=== PATIENT | female | born 1995 | race Caucasian/White ===

== ENCOUNTER 2016-11-21 18:14 | Emergency (ER) | payer BC, OTHER ==
[2016-11-21 18:52] VITALS: TEMP 98.3; O2SAT 99
--- NOTE | 2016-11-21 21:08 | ED.PDOC ---
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 No significant increase in discharge and no bleeding. No diarrhea. No vomiting but she has had some very mild nausea. No syncope or near syncope. The patient has had a normal before and has also had a miscarriage before. She does have irregular periods and her last normal menstrual period was in July. It is not unusual for her to go to 4 months without a period. Timing/Duration: 24 hours Severity: mild Improving Factors: nothing Worsening Factors: nothing Associated Symptoms: denies symptoms Allergies/Adverse Reactions: Allergies Penicillins Allergy (Verified 11/21/16 18:52) Home Medications: Ambulatory Orders NK [NK] 05/16/15 Review of Systems - Review of Systems Constitutional: States: malaise EENTM: States: no symptoms reported Respiratory: States: no symptoms reported Cardiology: States: no symptoms reported Gastrointestinal/Abdominal: States: nausea Genitourinary: States: no symptoms reported Musculoskeletal: States: no symptoms reported Skin: States: no symptoms reported Neurological: States: no symptoms reported All other Systems: No Change from Baseline Past Medical History (General) - Patient Medical History Hx Stroke: No Hx Congestive Heart Failure: No Hx Diabetes: No Hx Renal Disease: No Surgical History: no surgical history - Vaccination History Hx Tetanus, Diphtheria Vaccination: No Hx Influenza Vaccination: No Hx Pneumococcal Vaccination: No - Social History Hx Tobacco Use: Yes Cigarettes Packs Per Day: 1 Hx Alcohol Use: No Hx Substance Use: No - Pt denies use of drugs Hx Depression: No - Activities of Daily Living Hospice Agency (if applicable):: None - Female History Patient is a Female of Child Bearing Age (10 -59 yrs old): No Hx Last Menstrual Period: 08/10/12 Patient : Yes Expected Date of Delivery:: 05/23/13 Family Medical History - Family History Mother Family History: No Known Living Status: Still Living Physical Exam - Physical Exam General Appearance: Alert, Comfortable, No apparent distress Eye Exam: bilateral normal Ears, Nose, Throat: normal ENT inspection, normal pharynx Neck: full range of motion, supple, normal inspection Respiratory: chest non-tender, lungs clear, normal breath sounds, no respiratory distress, no accessory muscle use Cardiovascular/Chest: normal peripheral pulses, regular rate, rhythm, no edema Peripheral Pulses: radial,right: 2+, radial,left: 2+, dorsalis pedis,right: 2+, dorsalis pedis,left: 2+ Gastrointestinal/Abdominal: non tender, soft Rectal Exam: deferred, other - pelvic exam shows a closed cervix. No significant abnormal discharge. No cervical motion tenderness. Fundus is palpable and well below the umbilicus. Back Exam: normal inspection, no CVA tenderness, no vertebral tenderness Extremity: normal range of motion, non-tender, normal inspection, no pedal edema , normal capillary refill Neurologic: alert, normal mood/affect, oriented x 3 Skin Exam: normal color Comments: Vital Signs - 24 hr 11/21/16 11/21/16 18:44 20:30 Temperature 98.3 F Pulse Rate [ 108 H 75 pulse ox] Respiratory 20 16 Rate Blood Pressure 154/89 118/64 [left arm] O2 Sat by Pulse 99 Oximetry Progress - Progress Progress: 11/21/16 21:09 the patient is a 21-year-old female presenting to the emergency room secondary to some mild lower abdominal cramping with a positive urine test from 2 days ago. Serum beta hCG is 5000. Transabdominal pelvic ultrasound performed by me with a very low resolution ER ultrasound shows a thickened endometrium and possibly an intrauterine gestational sac. I see no definitive pole at this time and of course no cardiac motion. Pelvic exam shows a cervical os that is closed. No bleeding. The findings could be consistent with a gestational age of approximately 5 weeks or a that is further along and has begun the process of miscarrying. The patient is to follow-up with an implementation engineer or primary care of her choice in 3 days to repeat the serum hCG. a high-resolution ultrasound would certainly be helpful. Tylenol can be used for discomfort. She needs to keep herself well-hydrated. Return to the emergency room for any acute worsening. 11/21/16 21:13 - Results/Orders Results/Orders: Laboratory Results - last 24 hr 11/21/16 11/21/16 18:50 19:07 WBC 7.3 RBC 4.63 Hgb 14.0 Hct 42.2 MCV 91.1 MCH 30.3 MCHC 33.3 RDW 13.2 Plt Count 216 MPV 8.8 Absolute Neuts (auto) 5.00 Absolute Lymphs (auto) 1.50 Absolute Monos (auto) 0.70 Absolute Eos (auto) 0.00 Absolute Basos (auto) 0.10 Neutrophils % 68.2 Lymphocytes % 20.5 Monocytes % 9.7 H Eosinophils % 0.6 L Basophils % 1.0 Sodium 139 Potassium 3.3 L Chloride 104 Carbon Dioxide 25 Anion Gap 13.3 BUN 15 Creatinine 0.79 BUN/Creatinine Ratio 19.0 Random Glucose 133 H Serum Osmolality 280.3 Calcium 9.3 Total Bilirubin 0.8 AST 22 ALT 28 Alkaline Phosphatase 46 Serum Total Protein 7.6 Albumin 4.6 Globulin 3.0 Albumin/Globulin Ratio 1.5 Amylase 50 Lipase 25 TSH 0.80 Beta HCG, Quant 5067.0 H Urine Color Yellow Urine Appearance Clear Urine pH 6.0 Ur Specific [place] 1.010 Urine Protein Negative Urine Glucose (UA) Negative Urine Ketones Negative Urine Blood Negative Urine Nitrite Negative Urine Bilirubin Negative Urine Urobilinogen 0.2 Ur Leukocyte Esterase Negative Urine RBC 0-1 Urine WBC 0-1 Ur Epithelial Cells 0-1 Urine Bacteria Rare Departure - Departure Clinical Impression: Threatened in early Disposition: Discharge to Home or Self Care Condition: Fair Departure Forms: ED Discharge - Pt. Copy, Patient Portal Self Enrollment Instructions: DI for Threatened Diet: regular diet Activity: increase activity as tolerated, other - Pelvic rest Home Medications: Ambulatory Orders NK [NK] 05/16/15 Additional Instructions: the patient is a 21-year-old female presenting to the emergency room secondary to some mild lower abdominal cramping with a positive urine test from 2 days ago. Serum beta hCG is 5000. Transabdominal pelvic ultrasound performed by me with a very low resolution ER ultrasound shows a thickened endometrium and possibly an intrauterine gestational sac. I see no definitive pole at this time and of course no cardiac motion. Pelvic exam shows a cervical os that is closed. No bleeding. The findings could be consistent with a gestational age of approximately 5 weeks or a that is further along and has begun the process of miscarrying. The patient is to follow-up with an implementation engineer or primary care of her choice in 3 days to repeat the serum hCG. a high-resolution ultrasound would certainly be helpful. Tylenol can be used for discomfort. She needs to keep herself well-hydrated. Return to the emergency room for any acute worsening.
[2016-11-21 21:29] VITALS: BP 127/89
== END 2016-11-21 21:29 | disposition home or self-care (01) ==
LOC: ER 18:14
DX: O20.0 Threatened abortion (principal); Z3A.00 Weeks of gestation of pregnancy not specified; O99.331 Smoking (tobacco) complicating pregnancy, first trimester; F17.210 Nicotine dependence, cigarettes, uncomplicated; Z88.0 Allergy status to penicillin

== ENCOUNTER 2017-07-15 00:07 | Emergency (ER) | payer OTHER ==
[2017-07-15] MEDS ORDERED: SODIUM CHLORIDE 0.9% 1000ML 1,000 ML ONE (00:16)
[2017-07-15] MEDS ORDERED: LACTATED RINGERS 1,000 ML ONE (00:18)
[2017-07-15] MEDS ORDERED: LIDOCAINE 1% 50 ML VIAL INJ ONE (00:20)
[2017-07-15] MEDS ORDERED: OXYTOCIN INJ 10 UNITS/ML VIAL ONE (00:22)
[2017-07-15] MEDS ORDERED: fentaNYL CITRATE INJ 50 MCG/ML AMP ONE ×2 (00:26→01:48)
[2017-07-15] MEDS ORDERED: POVIDONE IODINE 10 % 15 ML UD TOP ONE (00:33)
[2017-07-15] MEDS ORDERED: ceFAZolin SODIUM 1 GM VIAL ONE (00:45)
[2017-07-15] MEDS ORDERED: SODIUM CHLORIDE 0.9% 50ML 50 ML ONE (00:45)
[2017-07-15] MEDS ORDERED: LACTATED RINGERS 1,000 ML IVS PRN (00:49)
[2017-07-15] MEDS ORDERED: ERYTHROMYCIN OPHTH OINT 1 APPLIC ONE (01:01)
--- NOTE | 2017-07-15 02:24 | ED.PDOC ---
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 Escobar-OB at [place] and was about to see him tomorrow.On her arrival at ER she was checked and vaginal exam her cervix 6 cm.dilatation,90 % effaced sta-0 and according to nurse she could not be transferred since she is in active labor Timing/Duration: 4-6 hours, constant Severity: moderate Improving Factors: nothing Worsening Factors: other - uterine contractions Associated Symptoms: other - see hpi Allergies/Adverse Reactions: Allergies Penicillins Allergy (Verified 07/15/17 01:37) Home Medications: Ambulatory Orders Vit W/ Ferrous Fumara [] 1 tablet PO DAILY 07/15/17 Review of Systems - Review of Systems Constitutional: States: no symptoms reported EENTM: States: no symptoms reported Respiratory: States: no symptoms reported Genitourinary: States: see HPI Musculoskeletal: States: no symptoms reported Past Medical History (General) - Patient Medical History Hx Seizures: No Hx Stroke: No Hx Asthma: No Hx Congestive Heart Failure: No Hx Diabetes: No Hx Renal Disease: No Surgical History: other - Vaccination History Hx Tetanus, Diphtheria Vaccination: No Hx Influenza Vaccination: No Hx Pneumococcal Vaccination: No - Social History Hx Tobacco Use: Yes Hx Alcohol Use: No Hx Substance Use: No - Pt denies use of drugs Hx Depression: No - Female History Patient is a Female of Child Bearing Age (10 -59 yrs old): Yes Hx Last Menstrual Period: 09/14/16 Patient : Yes - 38.1 wks Expected Date of Delivery:: 07/28/17 - Triage Comment ED Triage Comment: Pt is UC q3-4 min upon arrival. SVE initial 5-6cm Family Medical History - Family History Mother Family History: No Known Living Status: Still Living Physical Exam - Physical Exam General Appearance: Alert, Anxious, No apparent distress Eye Exam: bilateral normal Ears, Nose, Throat: hearing grossly normal, normal ENT inspection Neck: non-tender, supple Respiratory: lungs clear, normal breath sounds, no respiratory distress Cardiovascular/Chest: normal peripheral pulses, regular rate, rhythm, no murmur Gastrointestinal/Abdominal: other - gravid uterus heart tone-140 fundic height-27 Vaginal Exam cx-6cm dilated,90% eff,sta-0,cephalic presentation Extremity: no pedal edema, no calf tenderness Skin Exam: normal color, warm/dry Lymphatic: no adenopathy Progress - Progress Progress: 07/15/17 02:27 Vital Signs - 8 hr 07/15/17 07/15/17 00:10 01:28 Temperature 98 F Pulse Rate [ 97 H 97 H left] Respiratory 20 18 Rate Blood Pressure 144/87 [left] O2 Sat by Pulse 95 Oximetry - Results/Orders Results/Orders: Laboratory Tests 07/15/17 07/15/17 07/15/17 00:25 00:25 01:05 WBC 10.1 RBC 4.28 Hgb 12.6 Hct 37.6 MCV 87.9 MCH 29.4 MCHC 33.5 RDW 13.6 Plt Count 212 MPV 10.2 Absolute Neuts (auto) 7.50 H Absolute Lymphs (auto) 1.70 Absolute Monos (auto) 0.70 Absolute Eos (auto) 0.10 Absolute Basos (auto) 0.10 Neutrophils % 74.4 Lymphocytes % 17.1 L Monocytes % 6.9 Eosinophils % 1.1 Basophils % 0.5 POC Glucose 84 HIV 1&2 Antibody Rapid Negative Procedures - Additional Procedures Progress: Vaginal Delivery procedure-Ms. Kilpatrick 21 y/o female 38 wKS EGA admitted via ER in active labor with frequent painful uterine contractions cx-6 cm dilated,90% effaced,sta-0 vertex presentation and continued to have uterine contraction was prepped and draped in sterile manner then after 1hour and 40 minutes of active labor female baby delivered -actively crying score- 8/9 placenta delivered spontaneously after 2 minutes -complete no major laceration noted.Babys weight 5lbs/15 0z. Departure - Departure Clinical Impression: with 38 completed weeks gestation, Normal vaginal delivery Time of Disposition: 03:19 Disposition: Transfer to Hospital Condition: Fair Departure Forms: Patient Portal Self Enrollment Home Medications: Ambulatory Orders Vit W/ Ferrous Fumara [] 1 tablet PO DAILY 07/15/17 Transfer to Outside Facility - Transfer Information Accepting Provider:: Dr. Duke Accepting Facility: [facility]
[2017-07-15 07:45] VITALS: O2SAT 97
[2017-07-15 08:14] VITALS: BP 141/91; TEMP 98
== END 2017-07-15 04:10 | disposition short-term general hospital (02) ==
LOC: ER 00:07
DX: O80 Encounter for full-term uncomplicated delivery (principal); Z3A.38 38 weeks gestation of pregnancy; Z37.0 Single live birth; Z87.891 Personal history of nicotine dependence
CPT/HCPCS: 36415; 36416; 80307; 81001; 82948; 85025; 86592; 86703; 86706; 86850; 86900; 86901; 99464; A4216; J0690; J2590; J3010; J7030; J7120

== ENCOUNTER 2020-07-02 13:21 | Emergency (ER) | payer MEDICAID, OTHER ==
[2020-07-02] MEDS ORDERED: DEXAMETHASONE INJ 10 MG/ML VIAL IM ONE (13:41)
[2020-07-02] MEDS ORDERED: FAMOTIDINE 20 MG TAB PO ONE (13:45)
--- NOTE | 2020-07-02 13:47 | ED.PDOC ---
History of Present Illness - General Time Seen by Provider: 07/02/20 13:36 - History of Present Illness Initial Comments: 24 yo F no significant PMH presents to ED c/o rash around neck intermittently x 2 months. Denies new perfume food soap deoderant but pre-existing rash is easily irritated itchy and worsened by 'fake silver jewelery' Denies fever cough sob recent travel or contact with covid19. Denies fever chills nausea vomiting diarrhea chest pain sob diaphoresis. No change in diet rest bowel or bladder admits drinking and smoking has no PMD for follow up no other c/o today. PPE worn-N95 surgical mask with attyached face shield over N95 gloves and face shield over that. Allergies/Adverse Reactions: Allergies Penicillins Allergy (Verified 07/15/17 01:37) Home Medications: Ambulatory Orders Vit W/ Ferrous Fumara [] 1 tablet PO DAILY 07/15/17 DiphenhydrAMINE HCL [Benadryl] 50 mg PO BEDTIME #5 cap 07/02/20 Famotidine [Pepcid] 20 mg PO BID #14 tab 07/02/20 Prednisone 40 mg PO DAILY 5 Days #10 tab 07/02/20 Review of Systems - Review of Systems Constitutional: States: see HPI EENTM: States: see HPI Respiratory: States: see HPI Cardiology: States: see HPI Gastrointestinal/Abdominal: States: see HPI Genitourinary: States: see HPI Musculoskeletal: States: see HPI Skin: States: see HPI Neurological: States: see HPI Endocrine: States: see HPI All other Systems: Reviewed and Negative Past Medical History (General) - Patient Medical History Hx Seizures: No Hx Stroke: No Hx Asthma: No Hx Congestive Heart Failure: No Hx Diabetes: No Hx Renal Disease: No - Vaccination History Hx Tetanus, Diphtheria Vaccination: No Hx Influenza Vaccination: No Hx Pneumococcal Vaccination: No - Social History Hx Tobacco Use: Yes Hx Alcohol Use: No Hx Substance Use: No - Pt denies use of drugs Hx Depression: No - Female History Hx Last Menstrual Period: 09/14/16 Patient : Yes - 38.1 wks Expected Date of Delivery:: 07/28/17 Family Medical History - Family History Mother Family History: No Known Living Status: Still Living Physical Exam - Physical Exam General Appearance: No apparent distress Eye Exam: bilateral normal Ears, Nose, Throat: normal ENT inspection Neck: non-tender, full range of motion Respiratory: no respiratory distress Cardiovascular/Chest: regular rate, rhythm Gastrointestinal/Abdominal: non tender, soft Rectal Exam: deferred Back Exam: normal inspection Extremity: normal inspection Neurologic: no motor/sensory deficits Skin Exam: other - erythematous pruritic rash to bilateral neck over clavicles, rash Progress - Progress Progress: 07/02/20 13:48 A/P-[place] [place] d/c follow up pcp referral prednisone benadryl pepcid Departure - Departure Clinical Impression: Rash and nonspecific skin eruption Contact dermatitis Qualifiers: Contact dermatitis type: unspecified Contact dermatitis trigger: unspecified trigger Qualified Code(s): L25.9 - Unspecified contact dermatitis, unspecified cause Time of Disposition: 14:11 Disposition: Discharge to Home or Self Care Condition: Good Referrals: [facility] MD REF [Referring] - 1-2 Days Prescriptions: DiphenhydrAMINE HCL [Benadryl] 50 mg PO BEDTIME #5 cap Famotidine [Pepcid] 20 mg PO BID #14 tab Prednisone 40 mg PO DAILY 5 Days #10 tab Home Medications: Ambulatory Orders Vit W/ Ferrous Fumara [] 1 tablet PO DAILY 07/15/17 DiphenhydrAMINE HCL [Benadryl] 50 mg PO BEDTIME #5 cap 07/02/20 Famotidine [Pepcid] 20 mg PO BID #14 tab 07/02/20 Prednisone 40 mg PO DAILY 5 Days #10 tab 07/02/20
[2020-07-02 13:48] VITALS: TEMP 96.4
[2020-07-02 14:26] VITALS: BP 131/88; O2SAT 99
== END 2020-07-02 14:28 | disposition home or self-care (01) ==
LOC: ER 13:21
DX: L25.9 Unspecified contact dermatitis, unspecified cause (principal); F17.200 Nicotine dependence, unspecified, uncomplicated; Z88.0 Allergy status to penicillin
CPT/HCPCS: 81001; 81025; J1100